=== PATIENT | female | born 1960 | race Caucasian/White ===

== ENCOUNTER → 2017-01-24 | Day surgery (SDC) | payer BC ==
[~2017-01-24] MED LIST: EFFEXOR XR75 MG PO; GLUCOPHAGE500 M1 PO; HYDROCHLOROTHIA25 MG PO; IBUPROFEN PO; LOSARTAN POTASS50 MG PO
--- NOTE | ~2017-01-24 | OR ---
Unit #: [id number] #: [id number] Patient: ANALILIA HUGHES [id number] [address] [place], [place] [address] [id number] O MR#: [id number] NAME: ANALILIA HUGHES ROOM: Date of Procedure: 01/24/2017 Admission Date: 01/24/2017 Surgeon: Harsha Vaz M.D. : 1960 Attending Physician: Harsha Vaz M.D. Primary Care Physician: Derik Cheng M.D. OPERATIVE REPORT PREOPERATIVE DIAGNOSIS Colorectal cancer screening in an average-risk patient. PROCEDURE PERFORMED Colonoscopy up to cecum with excellent preparation and good visualization. POSTOPERATIVE DIAGNOSES Completely normal examination up to cecum. The patient did not have any polyps, diverticula, or hemorrhoids. RECOMMENDATIONS Repeat colonoscopy in 10 years. SEDATION USED MAC. DESCRIPTION OF PROCEDURE Following detailed explanation of potential risks and complications of a colonoscopy, namely perforation, bleeding, and complications related to sedation, the patient was brought to GI lab and laid in the left lateral decubitus position. A digital rectal examination performed, which was normal. Lubricated tip of the Olympus video colonoscope was inserted through the anus and advanced under direct vision. The scope was advanced and passed up to sigmoid into descending colon. No diverticula were noticed in this area. The scope tip was then navigated all the way up to cecum with visualization of the ileocecal valve and the appendiceal orifice. Preparation was excellent with good visualization and photodocumentation was obtained. The quality of the prep was excellent. Successive segments of the colonic mucosa were examined upon withdrawal and appeared unremarkable. There being no polyps, mass lesions, AVMs, or diverticula. The patient did not have any hemorrhoids at anal verge. The scope was then withdrawn. The patient returned to the recovery area. She tolerated the procedure without any postprocedure complications. Dictated by... Remigio Frank/ludivina TD: 01/24/2017 22:53 Unit #: [id number] #: [id number] Patient: ANALILIA HUGHES JOB #: [id number] OPERATIVE REPORT Page 1 of 1 X Harsha Vaz MD PROCEDURE OPERATIVE NOTE
== END | disposition home or self-care (01) ==
LOC: COPS 06:57
DX: Z12.11 Encounter for screening for malignant neoplasm of colon (principal); E11.9 Type 2 diabetes mellitus without complications; Z79.84 Long term (current) use of oral hypoglycemic drugs; I10 Essential (primary) hypertension; Z90.710 Acquired absence of both cervix and uterus
CPT/HCPCS: 82947